=== PATIENT | female | born 1970 | race Caucasian/White ===

== ENCOUNTER 2018-01-13 07:36 | Emergency (ER) | payer OTHER ==
[~2018-01-13] VITALS: Ht 170.2 cm; Wt 102.5 kg
[~2018-01-13 07:36] MED LIST: ALBUTEROL2.5 MG/0.1 INH; CLONAZEPAM 1 MG1 M1 PO
[2018-01-13 08:08] LABS: ABSOLUTE BASOPHILS 0.1 thou/uL (0.0-0.2); ABSOLUTE EOSINOPHILS 0.1 thou/uL (0.0-0.7); ABSOLUTE LYMPHOCYTES 1.7 thou/uL (0.8-5.3); ABSOLUTE MONOCYTES 0.6 thou/uL (0.0-1.2); ABSOLUTE NEUTROPHILS 5.1 thou/uL (1.6-8.1); BASOPHILS 0.9 %; EOSINOPHILS 0.8 %; HEMATOCRIT 37.8 % (37.0-47.0); HEMOGLOBIN 12.6 gm/dL (12.0-15.0); LYMPHOCYTES 22.7 %; MCHC 33.3 g/dL (28.0-37.0); MCV 81.1 fL (80.0-100.0); MONOCYTES 7.7 %; MPV 8.6 fl. (7.2-11.1); NUCLEATED RBCS 0 /100WBC; PLATELET COUNT* 333 thou/uL (150-400); POLYS 67.9 %; RBC 4.66 mil/uL (4.20-5.00); RDW-CV 17.5 % (10.5-14.5); WBC 7.5 thou/uL (4.0-11.0)
[2018-01-13 08:10] LABS: ANION GAP 5 mmol/L (7-16); BUN 13 mg/dL (7-18); CALCIUM 8.6 mg/dL (8.5-10.1); CHLORIDE 102 mmol/L (98-107); CO2 30 mmol/L (21-32); GLUCOSE 99 mg/dL (70-99); POTASSIUM 3.8 mmol/L (3.5-5.1); SODIUM 137 mmol/L (136-145)
[2018-01-13 08:14] LABS: APTT 26.8 Seconds (25.0-31.3); INR 1.1; PROTIME 10.5 Seconds (9.20-11.50)
[2018-01-13 08:17] LABS: ALBUMIN 3.5 g/dL (3.4-5.0); ALKALINE PHOSPHATASE 47 U/L (46-116); LIPASE 101 U/L (73-393); SGOT 14 U/L (15-37); SGPT 19 U/L (30-65); TOTAL BILIRUBIN 0.4 mg/dL (<0.1-1.0); TOTAL PROTEIN 7.2 g/dL (6.4-8.2); TROPONIN-I LEVEL <0.06 ng/mL (<0.06)
[2018-01-13] MEDS ORDERED: CARAFATE 1 GM TA1 GM PO (10:57)
[2018-01-13] MEDS ORDERED: PROAIR HFA8.5 GM PO (10:57)
[2018-01-13] MEDS ORDERED: PREDNISONE50 MG PO (10:57)
[2018-01-13 11:31] VITALS: BP 116/66
--- NOTE | 2018-01-13 15:21 | EKG ---
[place] [address] ELECTROCARDIOGRAM REPORT Name: BRO DEJESUS Room: [facility]#: [id number] Admission: 01/13/18 Attend Phys: Discharge: 01/13/18 Date of : 74 Report #: [id number] THIS REPORT FOR: //name// [facility] ED Test Date: 2018-01-13 Test Time: 07:48:56 Pat Name: BRO DEJESUS Department: Room: Gender: F Electrical [employer] Tester: Jing YOST : 1970 Requested By: Natali Marion Order Number: [id number] MD: Israel Woods Measurements Intervals Buhl Rate: 85 P: 56 RI: 147 QRS: 10 QRSD: 89 T: 12 QT: 371 QTc: 442 Interpretive Statements Sinus rhythm Probable left atrial enlargement Low voltage, precordial leads No previous ECG available for comparison Electronically Signed On 01-13-2018 15:21:17 [employer] by Israel Woods [email or web address] <ELECTRONICALLY SIGNED> By: Israel Woods MD, [facility] 01/13/18 1521 7 Israel Woods MD, FACC /EPI
== END 2018-01-13 11:31 | disposition home or self-care (01) ==
LOC: M.ERS 07:36
PROVIDERS: Personal Emergency Response Attendant
DX: J45.901 Unspecified asthma with (acute) exacerbation (principal)